=== PATIENT | female | born 1995 ===

== ENCOUNTER 2018-09-06 06:50 | Day surgery (SDC) | payer OTHER ==
[2018-08-30 12:14] VITALS: BMI 23.8
[~2018-09-06 06:50] MED LIST: EPINEPHrine 1:1000 Nasal Sol(30mL) ONE; Lidocaine/Epinephrine 1% 1:100000 10 ML IJ ONE; ceFAZolin 1 gm FROZEN Premix 1 GM/50 ML ML IVPB ONE
[2018-09-06] MEDS ORDERED: Acetaminophen-Codeine 300/30 mg Tab PO PRN (08:10)
[2018-09-06] MEDS ORDERED: Dextrose 5%/0.45% NS 1,000 ML IV SCH (08:15)
[2018-09-06] MEDS ORDERED: Midazolam 2 MG/2 ML VIAL ONE (09:04)
[2018-09-06] MEDS ORDERED: Propofol 10 mg/ml Inj (20 ML) ONE (09:05)
[2018-09-06] MEDS ORDERED: Succinylcholine Chloride 20 mg/ml Syr (5 ml) IV ONE (09:05)
[2018-09-06] MEDS ORDERED: Phenylephrine 10 mg/ml Inj ONE (10:07)
[2018-09-06] MEDS: HYDROmorphone 0.5 mg/0.5 ml ISec IVP PRN ×2 (10:40→10:55)
[2018-09-06] MEDS ORDERED: HYDROmorphone 0.5 mg/0.5 ml ISec ONE (10:42)
[2018-09-06] MEDS ORDERED: Lactated Ringer's 1,000 ML IV SCH (10:45)
[2018-09-06 11:14] VITALS: O2SAT 100
[2018-09-06 12:02] VITALS: RESP 18
[2018-09-06 12:45] VITALS: BP 109/73; PULSE 78; TEMP 98
--- NOTE | 2018-09-06 21:09 | OP ---
PROCEDURE DATE: 09/06/2018 PREOPERATIVE DIAGNOSES: Sinusitis, large turbinates, deviated septum. POSTOPERATIVE DIAGNOSES: Sinusitis, large turbinates, deviated septum. PROCEDURES: Endoscopic right maxillary antrostomy, endoscopic right ethmoidectomy, endoscopic right frontal sinusotomy, bilateral inferior turbinate reduction. DESCRIPTION OF PROCEDURE: The patient was brought into the room, placed in supine position. Anesthesia was initiated through an ET tube. Adrenaline-soaked pledgets were inserted into the nasal cavity. They remained there for five minutes and then removed. The navigation was set up and used throughout the case in order to ensure that the skull base and orbit were not entered. The patient was draped in the usual manner. The septum was injected with lidocaine with epinephrine on both sides. A Jonathon incision was made on the left, and mucoperichondrial flap was raised. A vertical incision was made in the cartilage leaving a 1.5 cm superior and anterior strut, and mucoperichondrial flap was raised on either side. Deviated portion of the bone and cartilage were removed using forceps and chisel. A Quilting suture was used to suture the two flaps together and closed the Jonathon incision. Next, a 0-degree scope was inserted into the nasal cavity. The inferior turbinates were noted to be enlarged; however, we reduced in size, first on the left, then on the right going from inferior to superior and anterior to posterior directions on both sides using scissors. Bleeding was controlled using suction cautery on both sides. Attention was turned to the right. The middle turbinate was injected with lidocaine with epinephrine and medialized. The uncinate process was medialized using a [place] elevator and removed using forceps. A debrider was used to enter the ethmoid bulla inferomedially, going posteriorly to the basal lamella, anterior and superiorly until the ethmoid bulla was removed. The basal lamella was entered. Posterior ethmoid cells were entered and opened. The skull base was identified and followed anteriorly all the way to the area of the anterior ethmoid air cells. The frontal recess was noted to be stenosed and opened using forceps. The maxillary antrum was noted to be stenosed and opened using forceps. The biopsies were taken of the anterior ethmoid, the lateral wall of the anterior ethmoid cavity and the maxillary sinus. Bleeding was controlled using suction cautery and adrenaline-soaked pledgets. Stents were placed. Splints were placed. The patient was taken off anesthesia and taken to recovery room in stable manner. Umesh Pimentel MD
== END 2018-09-06 12:40 | disposition home or self-care (01) ==
LOC: C.SDS 06:50
PROVIDERS: ATTEND Otolaryngology
DX: J34.2 Deviated nasal septum (principal); J34.3 Hypertrophy of nasal turbinates; J32.0 Chronic maxillary sinusitis; J32.1 Chronic frontal sinusitis; J32.2 Chronic ethmoidal sinusitis; J32.3 Chronic sphenoidal sinusitis
CPT/HCPCS: 30801; 31254; 31267; 31276; 88305; J0690; J1100; J1170; J2001; J2250; J2370; J2704; J3010